=== PATIENT | female | born 1950 | race Caucasian/White ===

== ENCOUNTER → 2016-05-10 | Outpatient (CLI) | payer MEDICARE ==
[~2016-05-10] MED LIST: AMLODIPINE BESYL5 MG PO; ASPIRIN81 MG PO; COUMADIN4 MG PO; ECOTRIN325 MG PO; LORTAB 7.5-3251 EACH PO; PRAVASTATIN SOD40 MG PO; PREMARIN1.25 MG PO; SOTALOL AF120 M1 PO; SOTALOL AF80 M1 PO; ZOFRAN PO
--- NOTE | ~2016-05-10 | US24 ---
[facility] A Service of [facility] & [facility] RADIOLOGY TEXT RESULTS PATIENT: DOROTHEA MCCARTHY LOCATION: [facility] : 50 UNIT #: [id number] AGE: [address]: BRINDA JOHN APRN SEX: F ORDER DR: [id number] [facility] [address], [place] [address] [id number] O MR#: [id number] Acc #: [id number] NAME: DOROTHEA MCCARTHY : 1950 SEX: F STUDY DATE/TIME: 05/10/2016 16:08 UNIT: [facility] ROOM: STUDY DESCRIPTION: US Breast Unilateral Attending Physician: Brinda John Aprn Referring Physician: Brinda John Aprn Ordering Physician: Brinda John Aprn Primary Care Physician: Brinda John Aprn MEDICAL IMAGING REPORT This report is preliminary unless electronic signature is present EXAM Targeted ultrasound left breast 05/10/2016. FINDINGS Result text unilateral breast mammogram. Please see this report for result text. BIRADS: 3 Probably benign finding; short interval follow up suggested. Dictated by... Andres Delgadillo M.D. THIS IS AN ELECTRONICALLY VERIFIED REPORT Andres Delgadillo M.D. at 05/11/2016 1:04 PM Preeti TD: 05/11/2016 08:19 JOB #: [id number] MEDICAL IMAGING REPORT Page 1 of 1 COPY
--- NOTE | ~2016-05-10 | MY7 ---
[facility] A Service of [facility] & [facility] RADIOLOGY TEXT RESULTS PATIENT: DOROTHEA MCCARTHY LOCATION: [facility] : 50 UNIT #: [id number] AGE: [address]: BRINDA JOHN APRN SEX: F ORDER DR: [id number] [facility] [address] [place], [place] [address] [id number] O MR#: [id number] Acc #: [id number] NAME: DOROTHEA MCCARTHY : 1950 SEX: F STUDY DATE/TIME: 05/10/2016 15:57 UNIT: [facility] ROOM: STUDY DESCRIPTION: MY Mammogram Dx Dig Lt Attending Physician: Brinda John Aprn Referring Physician: Brinda John Aprn Ordering Physician: Brinda John Aprn Primary Care Physician: Brinda John Aprn MEDICAL IMAGING REPORT This report is preliminary unless electronic signature is present EXAM Mediolateral left diagnostic mammogram and targeted left breast ultrasound DATE OF EXAMINATION 05/10/2016 INDICATION 66-year-old female presenting with pain in the upper, outer quadrant and periareolar pain on the left. No personal or family history of breast cancer. History of lumpectomy on the right and needle biopsy on the left, both with benign results. TECHNIQUE CC, MLO and true lateral views of the left breast were obtained and reviewed with an FDA-approved CAD device. Targeted ultrasound of the left breast was also performed in the areas of patient pain symptoms. COMPARISON STUDIES Mammography 12/03/2015, 11/17/2015, 10/10/2014, 05/18/2012. Ultrasound 12/03/2015. FINDINGS MAMMOGRAPHIC FINDINGS Left breast: The breast is composed of scattered fibroglandular densities. The pattern is unchanged. There is nodularity in the upper, outer left breast most characteristic of previously documented cyst. These appear stable to less conspicuous than on the prior mammograms performed 12/03/2015 and 11/17/2015. There is also a stable benign cyst in the lower, outer hemisphere left breast mammographically also confirmed as a cyst on prior ultrasound. There is no new dominant nodule, mass, or suspicious cluster of microcalcifications. Benign calcifications are present. The markers placed on the left breast appear to correspond to the cystic changes in the upper, outer left breast as well. There is no STS. [facility] A Service of [facility] & [facility] RADIOLOGY TEXT RESULTS PATIENT: DOROTHEA MCCARTHY LOCATION: [facility] : 50 UNIT #: [id number] AGE: [address]: BRINDA JOHN APRN SEX: F ORDER DR: suspicious finding related to the periareolar left breast. Targeted ultrasound of the left breast was, thereafter, performed. ULTRASOUND Left breast: Imaging of the left breast with ultrasound was performed in the areas of patient's concern. There is a cyst in the 3 o'clock position left breast spanning a distance of 2.4 cm maximum diameter. It previously measured up to 2.6 cm. It is stable to slightly smaller visually and objectively on ultrasound now measuring up to 0.4 cm AP, previously slightly larger on the prior study. No internal color flow. There is an incidental cyst measuring 3 mm in the 2 o'clock position left breast. Other smaller cysts are present in the upper, outer hemisphere left breast. An additional cyst measuring 8 mm x 5 mm at 2 o'clock is present. Imaging of the periareolar left breast was also performed. Imaging of the periareolar left breast is negative with the exception of a probably benign area of prominent breast tissue at 1 o'clock measuring about 7 x 3 mm. There is no internal color-flow, suspicious shadowing, or other suspicious feature on ultrasound and under real-time surveillance this appears to represent prominent breast tissue rather than a small solid oval nodule. It has probably benign features and reassessment with a followup ultrasound in 6 months is recommended in conjunction with a bilateral mammogram study in October of 2016 to maintain an annual screening schedule. Absent new or worsening symptoms in either breast, the patient should obtain a bilateral mammogram study in October of 2016 to maintain her annual screening schedule. Ultrasound of the probably benign area of breast tissue at 1 o'clock in the periareolar left breast is recommended at that point as well to reassess stability of the probably benign finding only identified with ultrasound. The patient has voiced understanding and agreement. She was encouraged to return prior to scheduled follow up/annual mammography in October if new or worsening symptoms developed. She voiced understanding and agreement. IMPRESSION 1. Mammographic and ultrasound evaluation of the left breast demonstrates multiple benign cysts in the upper outer quadrant that are stable to smaller when compared to prior mammograms and ultrasound studies. These are benign. 2. There is a probably benign area of prominent breast tissue measuring less than 1 cm in the 1 o'clock periareolar left breast. Given probably benign features, suggest a repeat ultrasound in 6 months to reassess stability of this probably benign finding that is only seen with ultrasound. This should be performed in conjunction with a bilateral mammogram in October of 2016 to maintain the patient's annual screening schedule. See discussion above. [facility] A Service of [facility] RADIOLOGY TEXT RESULTS PATIENT: DOROTHEA MCCARTHY LOCATION: [facility] : 50 UNIT #: [id number] AGE: [address]: BRINDA JOHN APRN SEX: F ORDER DR: Patient's over the age of 40 are entered into a reminder system with target due date for the next mammogram. BIRADS: 3 Probably benign finding; short interval followup suggested. Dictated by... Andres Delgadillo M.D. THIS IS AN ELECTRONICALLY VERIFIED REPORT Andres Delgadillo M.D. at 05/11/2016 1:07 PM Day TD: 05/11/2016 08:08 JOB #: [id number] MEDICAL IMAGING REPORT Page 1 of 1 COPY
== END | disposition home or self-care (01) ==
LOC: CWCC 15:26
DX: N63 Unspecified lump in breast (principal); N60.02 Solitary cyst of left breast
CPT/HCPCS: 76641; G0202; G0206